=== PATIENT | male | born 1990 | race Caucasian/White ===

== ENCOUNTER 2021-04-21 18:02 | Inpatient (IN) | payer MEDICAID ==
[2021-04-21 19:02] LABS: AMPHETAMINES,URINE NEGATIVE (NEGATIVE); BARBITURATES,URINE NEGATIVE (NEGATIVE); BENZODIAZEPINE,URINE POSITIVE (NEGATIVE); MDMA (ECSTASY), URINE NEGATIVE (NEGATIVE); METHADONE,URINE NEGATIVE (NEGATIVE); METHAMPHETAMINES,URINE NEGATIVE (NEGATIVE); OPIATES,URINE NEGATIVE (NEGATIVE); OXYCODONE,URINE NEGATIVE (NEGATIVE); PHENCYCLIDINE,URINE NEGATIVE (NEGATIVE); TCA,URINE NEGATIVE (NEGATIVE)
[2021-04-21] MEDS ORDERED: MVI, Adult with Vitamin K 10 ML, Folic Acid 1 MG, Thiamine 100 MG in Lactated Ringers 1... IV ONE ×4 (19:11)
[2021-04-21 19:15] LABS: PTT,PARTIAL THROMBOPLSTIN TIME 23.3 SEC (22.0-34.0)
[2021-04-21 19:23] LABS: ANION GAP 14.2 mEq/L (7-13); CHLORIDE,CL 97 mmol/L (98-107); SODIUM,NA 137 mmol/L (136-145)
[2021-04-21 19:24] LABS: ACETAMINOPHEN 0 ug/mL (10-30 (Therapeutic))
[2021-04-21 19:34] LABS: CORONAVIRUS COVID-19 NAA NEGATIVE (NEGATIVE); RESPIRATORY SYNCYTIAL VIR NAA NEGATIVE (NEGATIVE)
[2021-04-21] MEDS ORDERED: HYDROmorphone 0.5 MG/0.5 ML Syringe IVPUSH ONE (19:42)
[2021-04-21] MEDS ORDERED: Iopamidol 612 MG/ML 100 ML Bottle IVPUSH ONE (19:45)
[2021-04-21] MEDS ORDERED: Sodium Chloride 0.9% 1,000 ML IV ONE (20:45)
[2021-04-21] MEDS ORDERED: LORazepam 2 MG/ML SDV IVPUSH ONE ×2 (20:51→21:47)
[2021-04-21] MEDS ORDERED: Polyethylene Glycol 3350 Powder 17 GM Packet PO PRN (22:32)
[2021-04-21] MEDS ORDERED: Ondansetron 4 MG/2 ML SDV IVPUSH PRN (22:32)
[2021-04-21] MEDS ORDERED: Albuterol/Ipratropium 3.0-0.5 MG/3 ML Neb Soln NEB PRN (22:32)
[2021-04-21] MEDS ORDERED: Pantoprazole 40 MG Vial IVPUSH ONE (22:39)
[2021-04-21] MEDS ORDERED: Dextrose 5%-0.9% NaCl with KCl 1,000 ML IV SCH (22:45)
[2021-04-21] MEDS ORDERED: traZODone 50 MG Tab PO ONE (22:45)
[2021-04-21] MEDS ORDERED: chlordiazePOXIDE 25 MG Cap PO ONE (22:57)
[2021-04-21] MEDS ORDERED: QUEtiapine 100 MG Tab PO ONE (22:57)
[2021-04-21] MEDS ORDERED: hydrALAZINE 20 MG/ML SDV IVPUSH PRN (23:23)
[2021-04-21] MEDS ORDERED: Metoprolol Tartrate 5 MG/5 ML SDV IVPUSH PRN (23:23)
[2021-04-21] MEDS: LORazepam 2 MG/ML SDV IVPUSH PRN (23:48)
[2021-04-22] MEDS: LORazepam 2 MG/ML SDV IVPUSH PRN ×5 (00:50→22:50)
[2021-04-22 06:23] LABS: ANION GAP 14.6 mEq/L (7-13); CHLORIDE,CL 101 mmol/L (98-107); SODIUM,NA 139 mmol/L (136-145)
[2021-04-22] MEDS: Nicotine 21 MG/24 Hr Patch TRDERM SCH (08:31)
[2021-04-22] MEDS: Multivitamin Tab PO SCH (08:32)
[2021-04-22] MEDS: Thiamine 100 MG Tab PO SCH (08:32)
[2021-04-22] MEDS: Folic Acid 1 MG Tab PO SCH (08:32)
[2021-04-22] MEDS: ClonazePAM 0.5 MG Tab PO SCH ×3 (08:32→22:27)
[2021-04-22] MEDS: Pantoprazole 40 MG Vial IVPUSH SCH ×2 (08:33→22:26)
[2021-04-22] MEDS ORDERED: cloNIDine 0.1 MG Tab PO PRN (10:01)
[2021-04-22] MEDS ORDERED: QUEtiapine 100 MG Tab PO ONE (10:15)
[2021-04-22] MEDS: LORazepam 1 MG Tab PO PRN (12:08)
[2021-04-22] MEDS: chlordiazePOXIDE 25 MG Cap PO SCH ×2 (15:59→22:27)
[2021-04-22] MEDS ORDERED: QUEtiapine 100 MG Tab PO SCH (21:00)
[2021-04-22] MEDS ORDERED: traZODone 50 MG Tab PO SCH (21:00)
[2021-04-22] MEDS: HYDROmorphone 0.5 MG/0.5 ML Syringe IVPUSH PRN (22:26)
[2021-04-22] MEDS: QUEtiapine 100 MG Tab PO SCH (22:27)
[2021-04-23] MEDS: HYDROmorphone 0.5 MG/0.5 ML Syringe IVPUSH PRN ×7 (00:33→22:50)
[2021-04-23] MEDS: LORazepam 2 MG/ML SDV IVPUSH PRN ×6 (02:51→22:26)
[2021-04-23 06:31] LABS: ANION GAP 11.5 mEq/L (7-13); CHLORIDE,CL 99 mmol/L (98-107); SODIUM,NA 137 mmol/L (136-145)
[2021-04-23] MEDS: chlordiazePOXIDE 25 MG Cap PO SCH ×3 (09:26→20:42)
[2021-04-23] MEDS: ClonazePAM 0.5 MG Tab PO SCH ×3 (09:26→20:41)
[2021-04-23] MEDS: Folic Acid 1 MG Tab PO SCH (09:27)
[2021-04-23] MEDS: Multivitamin Tab PO SCH (09:27)
[2021-04-23] MEDS: Thiamine 100 MG Tab PO SCH (09:27)
[2021-04-23] MEDS: QUEtiapine 100 MG Tab PO SCH ×2 (09:28→20:41)
[2021-04-23] MEDS: Nicotine 21 MG/24 Hr Patch TRDERM SCH (09:28)
[2021-04-23] MEDS: Pantoprazole 40 MG Vial IVPUSH SCH ×2 (09:29→20:43)
[2021-04-23] MEDS: LORazepam 1 MG Tab PO PRN ×2 (12:35→15:25)
[2021-04-23] MEDS: traZODone 50 MG Tab PO SCH (22:49)
[2021-04-23] MEDS: Melatonin 3 MG Tab PO PRN (22:49)
[2021-04-24] MEDS: HYDROmorphone 0.5 MG/0.5 ML Syringe IVPUSH PRN ×3 (00:40→21:16)
[2021-04-24] MEDS: LORazepam 2 MG/ML SDV IVPUSH PRN (00:43)
[2021-04-24] MEDS: LORazepam 1 MG Tab PO PRN ×3 (06:18→21:15)
[2021-04-24 07:03] LABS: ANION GAP 13.6 mEq/L (7-13); CHLORIDE,CL 102 mmol/L (98-107); SODIUM,NA 139 mmol/L (136-145)
[2021-04-24] MEDS: Nicotine 21 MG/24 Hr Patch TRDERM SCH (08:10)
[2021-04-24] MEDS: chlordiazePOXIDE 25 MG Cap PO SCH ×3 (08:11→21:18)
[2021-04-24] MEDS: QUEtiapine 100 MG Tab PO SCH ×2 (08:11→21:18)
[2021-04-24] MEDS: Multivitamin Tab PO SCH (08:11)
[2021-04-24] MEDS: Pantoprazole 40 MG Vial IVPUSH SCH ×2 (08:12→21:20)
[2021-04-24] MEDS: Folic Acid 1 MG Tab PO SCH (08:12)
[2021-04-24] MEDS: Thiamine 100 MG Tab PO SCH (08:12)
[2021-04-24] MEDS: ClonazePAM 0.5 MG Tab PO SCH ×3 (08:12→21:18)
[2021-04-24] MEDS: Melatonin 3 MG Tab PO PRN (21:15)
[2021-04-24] MEDS: traZODone 50 MG Tab PO SCH (21:19)
[2021-04-25] MEDS: LORazepam 1 MG Tab PO PRN ×5 (01:24→16:37)
[2021-04-25] MEDS: HYDROmorphone 0.5 MG/0.5 ML Syringe IVPUSH PRN (03:39)
[2021-04-25 07:14] LABS: ANION GAP 11.6 mEq/L (7-13); CHLORIDE,CL 102 mmol/L (98-107); SODIUM,NA 139 mmol/L (136-145)
[2021-04-25] MEDS: Thiamine 100 MG Tab PO SCH (09:22)
[2021-04-25] MEDS: chlordiazePOXIDE 25 MG Cap PO SCH ×3 (09:22→21:06)
[2021-04-25] MEDS: ClonazePAM 0.5 MG Tab PO SCH ×3 (09:22→21:07)
[2021-04-25] MEDS: Nicotine 21 MG/24 Hr Patch TRDERM SCH (09:23)
[2021-04-25] MEDS: QUEtiapine 100 MG Tab PO SCH ×2 (09:23→21:08)
[2021-04-25] MEDS: Pantoprazole 40 MG Vial IVPUSH SCH ×2 (09:23→21:04)
[2021-04-25] MEDS: Multivitamin Tab PO SCH (09:23)
[2021-04-25] MEDS: Acetaminophen 500 MG Tab PO PRN ×2 (10:47→16:38)
[2021-04-25] MEDS: traZODone 50 MG Tab PO SCH (21:05)
[2021-04-25] MEDS: LORazepam 2 MG/ML SDV IVPUSH PRN (21:30)
[2021-04-26] MEDS: LORazepam 1 MG Tab PO PRN ×3 (02:50→08:26)
[2021-04-26 07:03] LABS: ANION GAP 15.1 mEq/L (7-13); CHLORIDE,CL 105 mmol/L (98-107); SODIUM,NA 141 mmol/L (136-145)
[2021-04-26] MEDS: QUEtiapine 100 MG Tab PO SCH ×2 (08:26→21:51)
[2021-04-26] MEDS: Thiamine 100 MG Tab PO SCH (08:26)
[2021-04-26] MEDS: Multivitamin Tab PO SCH (08:27)
[2021-04-26] MEDS: ClonazePAM 0.5 MG Tab PO SCH ×3 (08:27→21:51)
[2021-04-26] MEDS: Pantoprazole 40 MG Vial IVPUSH SCH ×2 (08:27→21:54)
[2021-04-26] MEDS: Nicotine 21 MG/24 Hr Patch TRDERM SCH (08:27)
[2021-04-26] MEDS: chlordiazePOXIDE 25 MG Cap PO SCH ×3 (08:27→21:50)
[2021-04-26] MEDS: Acetaminophen 500 MG Tab PO PRN (10:06)
[2021-04-26] MEDS: LORazepam 2 MG/ML SDV IVPUSH PRN ×5 (10:11→22:00)
[2021-04-26] MEDS ORDERED: traZODone 50 MG Tab PO SCH (21:00)
[2021-04-26] MEDS: traZODone 50 MG Tab PO SCH (21:51)
[2021-04-27] MEDS: LORazepam 2 MG/ML SDV IVPUSH PRN ×8 (01:20→23:22)
[2021-04-27] MEDS: Acetaminophen 500 MG Tab PO PRN (05:00)
[2021-04-27] MEDS: Multivitamin Tab PO SCH (08:30)
[2021-04-27] MEDS: QUEtiapine 100 MG Tab PO SCH ×2 (08:30→21:25)
[2021-04-27] MEDS: chlordiazePOXIDE 25 MG Cap PO SCH ×3 (08:30→21:25)
[2021-04-27] MEDS: ClonazePAM 0.5 MG Tab PO SCH ×3 (08:30→21:25)
[2021-04-27] MEDS: Pantoprazole 40 MG Vial IVPUSH SCH ×2 (08:30→21:26)
[2021-04-27] MEDS: Thiamine 100 MG Tab PO SCH (08:30)
[2021-04-27] MEDS: Nicotine 21 MG/24 Hr Patch TRDERM SCH (08:32)
[2021-04-27] MEDS: traZODone 50 MG Tab PO SCH (21:26)
[2021-04-28] MEDS: LORazepam 2 MG/ML SDV IVPUSH PRN (04:24)
[2021-04-28] MEDS: LORazepam 1 MG Tab PO PRN ×2 (08:31→10:39)
[2021-04-28] MEDS: QUEtiapine 100 MG Tab PO SCH (08:46)
[2021-04-28] MEDS: Pantoprazole 40 MG Vial IVPUSH SCH (08:46)
[2021-04-28] MEDS: chlordiazePOXIDE 25 MG Cap PO SCH ×2 (08:46→14:04)
[2021-04-28] MEDS: Thiamine 100 MG Tab PO SCH (08:46)
[2021-04-28] MEDS: ClonazePAM 0.5 MG Tab PO SCH ×2 (08:46→14:04)
[2021-04-28] MEDS: Multivitamin Tab PO SCH (08:47)
[2021-04-28] MEDS: Nicotine 21 MG/24 Hr Patch TRDERM SCH (08:51)
== END 2021-04-28 14:30 | disposition home or self-care (01) | DRG 897 ==
LOC: DL.ED 18:02 → DL.MS 21:45
PROVIDERS: ADMIT Internal Medicine; ATTEND Internal Medicine
DX: F10.239 Alcohol dependence with withdrawal, unspecified (principal); E87.2 Acidosis; R44.0 Auditory hallucinations; R56.9 Unspecified convulsions; F31.9 Bipolar disorder, unspecified; Z20.822 Contact with and (suspected) exposure to COVID-19; F17.210 Nicotine dependence, cigarettes, uncomplicated; D69.59 Other secondary thrombocytopenia; E87.8 Other disorders of electrolyte and fluid balance, not elsewhere classified; Y90.7 Blood alcohol level of 200-239 mg/100 ml; K70.10 Alcoholic hepatitis without ascites; Z88.8 Allergy status to other drugs, medicaments and biological substances
CPT/HCPCS: 0241U; 36415; 74177; 80048; 80053; 80143; 80179; 80305-QW; 80307; 81001; 82150; 83605; 83690; 83735; 84443; 85025; 85610; 85730; 86140; 93010; 96365; 96375; 99284; 99285-25; A9270-GY; C9113; J1170; J2060; J3411; J3490; J7030; J7120; Q9967

== ENCOUNTER 2021-07-23 10:32 | Emergency (ER) | payer MEDICAID ==
[2021-07-23 13:06] LABS: ANION GAP 10.4 mEq/L (7-13); CHLORIDE,CL 104 mmol/L (98-107); SODIUM,NA 140 mmol/L (136-145)
[2021-07-23] MEDS ORDERED: Iopamidol 612 MG/ML 100 ML Bottle IVPUSH ONE (13:18)
[2021-07-23] MEDS ORDERED: HYDROmorphone 0.5 MG/0.5 ML Syringe IVPUSH ONE (13:21)
== END 2021-07-23 15:00 | disposition home or self-care (01) ==
LOC: DL.ED 10:32
DX: G89.18 Other acute postprocedural pain (principal); R10.84 Generalized abdominal pain; Z88.5 Allergy status to narcotic agent
CPT/HCPCS: 36415; 74177; 80053; 81003; 83605; 85025; 96374; 99284; 99284-25; J1170; Q9967